=== PATIENT | female | born 1995 | race Caucasian/White ===

== ENCOUNTER 2022-05-14 03:52 | Inpatient (IN) ==
[2022-05-14] MEDS ORDERED: Naloxone 0.4 MG/ML INJ IVP PRN (04:23)
[2022-05-14] MEDS ORDERED: Famotidine 20 MG/2 ML VIAL IVP PRN (04:23)
[2022-05-14] MEDS ORDERED: Metoclopramide 10 MG/2 ML VIAL IVP PRN (04:23)
[2022-05-14] MEDS ORDERED: Oxytocin 30 UNIT/503 ML BAG IVC SCH ×2 (04:30→15:28)
[2022-05-14] MEDS ORDERED: Ringers Solution, Lactated 1,000 ML ONE ×2 (04:53→05:44)
[2022-05-14 05:34] LABS: Basophils % 0.3 %; Eosinophils # 0.1 K/mcL (0.0-0.6); Eosinophils % 1.2 %; Hematocrit 34.8 % (35.3-44.9); Hemoglobin 11.3 g/dL (11.5-15.4); Immature Granulocytes % 0.5 % (0-4); Lymphocytes # 2.6 K/mcL (0.6-4.6); Lymphocytes % 26.4 %; Mean Corpuscular HGB Conc 32.5 g/dL (31.6-35.5); Mean Corpuscular Hemoglobin 26.8 pg (28.0-33.3); Mean Corpuscular Volume 82.7 fL (83.0-100.0); Mean Platelet Volume 10.3 fL (9.4-12.4); Monocytes # 0.6 K/mcL (0.0-1.3); Monocytes % 5.7 %; Neutrophils # 6.5 K/mcL (1.6-8.9); Platelet Count 302 K/mcL (140-400); Red Blood Count 4.21 M/mcL (3.82-4.97); Red Cell Distribution Width 13.2 % (11.5-14.5); Segmented Neutrophils % 65.9 %; White Blood Count 9.8 K/mcL (4.3-11.1)
[2022-05-14 05:36] LABS: Amphetamine Screen,Urine Negative ng/mL (Cutoff=1000); Barbiturate Screen,Urine Negative ng/mL (Cutoff=200); Benzodiazepines Screen,Urine Negative ng/mL (Cutoff=200); Cannabinoid Screen,Urine Negative ng/mL (Cutoff = 50); Cocaine Screen,Urine Negative ng/mL (Cutoff= 300); Opiate Screen,Urine Negative ng/mL (Cutoff=300); Phencyclidine Screen,Urine Negative ng/mL (Cutoff=25)
[2022-05-14] MEDS ORDERED: Ringers Solution, Lactated 1,000 ML IVC SCH (07:45)
[2022-05-14] MEDS ORDERED: Ondansetron 4 MG/2 ML VIAL IVP PRN (07:45)
[2022-05-14] MEDS ORDERED: *HR* Nalbuphine 10 MG/ML AMPUL IV PRN (07:45)
[2022-05-14 09:10] LABS: Protein/Creatinine Ratio,Urine 0.13 mg/mg (0.00-0.20)
[2022-05-14 09:11] LABS: Alanine Aminotransferase 6 Units/L (7-52); Aspartate Amino Transferase 13 Units/L (13-39); BUN/Creatinine Ratio 15 (6-26); Blood Urea Nitrogen 9 mg/dL (6-20); Lactate Dehydrogenase 171 Units/L (140-271); Uric Acid 3.2 mg/dL (2.3-7.6); eGFR For African Americans > 60 (> 60); eGFR For Non-African Americans > 60 (> 60)
[2022-05-14] MEDS ORDERED: EPHEDrine 50 MG/ML VIAL IVP PRN (09:52)
[2022-05-14] MEDS ORDERED: Epidural Premix (fent/bupiv) 110 ML EP SCH (10:00)
[2022-05-14] MEDS ORDERED: *HR* Phenylephrine 10 MG/ML VIAL ONE (11:33)
[2022-05-14] MEDS ORDERED: 0.9 % Sodium Chloride 1,000 ML ONE (12:43)
[2022-05-14] MEDS ORDERED: Measles/Mumps/Rubella Vacc 0.5 ML VIAL SQ PRN (15:28)
[2022-05-14] MEDS ORDERED: Lanolin 7 G OINT...G. TP PRN (15:28)
[2022-05-14] MEDS ORDERED: Rho Immune Globulin 1,500 UNIT SYRINGE IM PRN (15:28)
[2022-05-14] MEDS ORDERED: Ondansetron ODT 4 MG TAB.RAPDIS SL PRN (15:28)
[2022-05-14] MEDS ORDERED: Benzocaine/Menthol 56 GM AEROSOL SPRAY TP PRN (15:28)
[2022-05-14] MEDS: Acetaminophen 325 MG TABLET PO SCH ×2 (16:30→23:00)
[2022-05-14] MEDS: Ibuprofen 600 MG TABLET PO SCH (18:21)
[2022-05-15] MEDS: Ibuprofen 600 MG TABLET PO SCH ×2 (01:06→09:41)
[2022-05-15] MEDS: Acetaminophen 325 MG TABLET PO SCH (05:35)
[2022-05-15 06:10] LABS: Basophils # 0.1 K/mcL (0.0-0.2); Basophils % 0.4 %; Eosinophils # 0.1 K/mcL (0.0-0.6); Eosinophils % 1.2 %; Hemoglobin 9.9 g/dL (11.5-15.4); Immature Granulocytes % 0.4 % (0-4); Lymphocytes % 26.5 %; Mean Corpuscular HGB Conc 31.9 g/dL (31.6-35.5); Mean Corpuscular Hemoglobin 26.6 pg (28.0-33.3); Mean Corpuscular Volume 83.3 fL (83.0-100.0); Mean Platelet Volume 10.7 fL (9.4-12.4); Monocytes # 0.6 K/mcL (0.0-1.3); Monocytes % 5.6 %; Neutrophils # 7.6 K/mcL (1.6-8.9); Platelet Count 240 K/mcL (140-400); Red Blood Count 3.72 M/mcL (3.82-4.97); Red Cell Distribution Width 13.2 % (11.5-14.5); Segmented Neutrophils % 65.9 %; White Blood Count 11.5 K/mcL (4.3-11.1)
[2022-05-15 07:07] VITALS: BP 109/72; PULSE 77; TEMP 97.7; O2SAT 97
[2022-05-15] MEDS ORDERED: Prenatal Vit/FA 1 EACH TABLET PO SCH (09:00)
[2022-05-15] MEDS ORDERED: NON-FORMULARY MEDICATION 1 EACH EACH (Prenatal Tablet 1 TAB) PO SCH (09:00)
== END 2022-05-15 15:00 | disposition home or self-care (01) | DRG 560 ==
LOC: 1NENULAB 03:52 → 1NENUOBS 15:29
PROVIDERS: ADMIT Student in an Organized Health Care Education/Training Program; ATTEND Student in an Organized Health Care Education/Training Program